=== PATIENT | male | born 1955 | race African-American/Black ===

== ENCOUNTER 2018-05-07 09:08 | Inpatient (IN) | payer OTHER ==
[~2018-05-07] VITALS: Ht 185.4 cm; Wt 96.6 kg
[~2018-05-07 09:08] MED LIST: ASPI-989 PO; ATOR20TA86 PO; GABA-531 PO; HYDR25TA84 PO; LISI-661 PO; METF-960 PO; SITA25 PO
[2018-05-07] MEDS ORDERED: INSLAN SQ (09:15)
[2018-05-07] MEDS ORDERED: DIABETIC PO (09:15)
[2018-05-07] MEDS ORDERED: INSNOV SQ (09:15)
[2018-05-07 09:19] LABS: GLUCOSE,POINT OF CARE 148 MG/DL (70-110)
[2018-05-07 12:31] LABS: BASOPHILS % (AUTO) 0.3 % (0.0-2.0); EOSINOPHILS % (AUTO) 0.8 % (1.0-6.0); HEMATOCRIT 33.2 % (41-53); HEMOGLOBIN 11.1 g/dL (13.5-17.5); LYMPHOCYTES # (AUTO) 0.8 K/uL (1.0-4.8); LYMPHOCYTES % (AUTO) 20.2 % (22.0-44.0); MEAN CORPUSCULAR HEMOGLOBIN 29.8 pg (26.0-34.0); MEAN CORPUSCULAR HGB CONC 33.4 G/dL (31.0-37.0); MEAN CORPUSCULAR VOLUME 89 fL (80-100); MONOCYTES # (AUTO) 0.5 K/uL (0.1-1.0); MONOCYTES % (AUTO) 13.1 % (2.0-9.0); NEUTROPHILS # (AUTO) 2.7 K/uL (1.8-7.7); NEUTROPHILS % (AUTO) 65.6 % (40.0-70.0); PLATELET COUNT (AUTO) 246 K/uL (150-450); RED BLOOD CELL COUNT(AUTO) 3.72 MIL/uL (4.50-5.90); RED CELL DISTRIBUTION WIDTH 13.3 % (11.5-14.5)
[2018-05-07 12:43] LABS: PROTHROMBIN TIME 10.5 SEC (9.4-11.6)
[2018-05-07 12:44] LABS: ANION GAP 9 mmol/L (8-16); CALCIUM, TOTAL 8.6 mg/dL (8.8-10.5); CARBON DIOXIDE 27 mmol/L (22-29); CHLORIDE 103 mmol/L (98-107); CREATININE 1.41 mg/dL (0.60-1.30); GLOMERULAR FILTR. RATE CALC > 60 mL/min (>60); GLUCOSE,RANDOM 197 mg/dL (70-110); POTASSIUM 4.1 mmol/L (3.5-5.1); SODIUM SERUM 139 mmol/L (136-145); UREA NITROGEN, BLOOD 31 mg/dL (7-18)
[2018-05-07 12:56] LABS: ALANINE AMINOTRANSFERASE 14 U/L (12-78); ALBUMIN 3.1 g/dL (3.4-5.0); ALKALINE PHOSPHATASE 65 U/L (46-116); ASPARTATE AMINOTRANSFERASE 20 U/L (15-37); BILIRUBIN,TOTAL 0.4 mg/dL (0.1-1.0); TOTAL PROTEIN, SERUM 7.1 g/dL (6.4-8.2)
[2018-05-07 13:14] LABS: GLUCOSE,POINT OF CARE 195 MG/DL (70-110)
[2018-05-07] MEDS ORDERED: SODIUM CHLORIDE 0.9% IV SCH (13:45)
[2018-05-07] MEDS ORDERED: FAMOTIDINE IV SCH (13:45)
[2018-05-07 14:20] VITALS: BP 152/88
[2018-05-07] MEDS ORDERED: SODIUM CHLORIDE 0.9% 250 ML IV ONE (18:04)
[2018-05-07 19:36] VITALS: BP 142/83
[2018-05-07 19:39] LABS: GLUCOMETER DEV NAME(LOC) 4E.; GLUCOSE,POINT OF CARE 152 MG/DL (70-110)
[2018-05-07] MEDS ORDERED: ALBUTEROL SULFATE 2.5 MG/0.5 ML NEB SOLUTION NEB PRN (21:45)
[2018-05-07] MEDS ORDERED: IPRATROPIUM BROMIDE 0.5 MG/2.5 ML NEB SOLUTION NEB PRN (21:45)
[2018-05-07] MEDS ORDERED: ONDANSETRON HCL 4 MG/2 ML VIAL IVP PRN (21:45)
[2018-05-07] MEDS ORDERED: ZOLPIDEM TARTRATE 5 MG TABLET PO PRN (21:45)
[2018-05-07] MEDS ORDERED: MAGNESIUM HYDROXIDE SUSPENSION 30 ML UDCUP PO PRN (21:45)
[2018-05-07] MEDS ORDERED: HYDROCODONE/ACETAMINOPHEN 5-325 MG TABLET PO PRN (21:45)
[2018-05-07] MEDS ORDERED: BISACODYL 10 MG RECTAL RECTAL SUPPOSITORY PR PRN (21:45)
[2018-05-07] MEDS ORDERED: MORPHINE SULFATE 4 MG/ML SYRINGE IVP PRN (21:45)
[2018-05-07] MEDS: DEXTROSE 5%-0.45% SODIUM CHL 1,000 ML IV SCH (22:24)
[2018-05-07] MEDS: HydrALAZINE HCL 25 MG TABLET PO SCH (22:24)
[2018-05-07 22:26] LABS: HEMATOCRIT 27.4 % (41-53); HEMOGLOBIN 9.4 g/dL (13.5-17.5)
[2018-05-07 23:09] VITALS: BP 126/66
[2018-05-07] MEDS: ACETAMINOPHEN 325 MG TABLET PO PRN (23:17)
[2018-05-08 04:19] VITALS: BP 142/71
[2018-05-08 04:29] LABS: HEMATOCRIT 24.8 % (41-53); HEMOGLOBIN 8.5 g/dL (13.5-17.5)
[2018-05-08] MEDS: HydrALAZINE HCL 25 MG TABLET PO SCH ×3 (05:56→21:30)
[2018-05-08 06:04] LABS: GLUCOMETER DEV NAME(LOC) 4E.; GLUCOSE,POINT OF CARE 188 MG/DL (70-110)
[2018-05-08 08:13] VITALS: BP 147/78
[2018-05-08] MEDS: GABAPENTIN 300 MG CAPSULE PO SCH ×3 (08:27→20:00)
[2018-05-08] MEDS: LISINOPRIL 10 MG TABLET PO SCH ×2 (08:27→20:00)
[2018-05-08] MEDS: DOCUSATE SODIUM 100 MG CAPSULE PO SCH ×2 (08:28→09:00)
[2018-05-08] MEDS ORDERED: PANTOPRAZOLE SODIUM 40 MG/VIAL IVP SCH (09:00)
[2018-05-08 10:06] LABS: HEMOGLOBIN 9.1 g/dL (13.5-17.5)
[2018-05-08] MEDS ORDERED: SODIUM CHLORIDE 0.9% 1,000 ML IV ONE ×2 (10:25→11:00)
[2018-05-08] MEDS ORDERED: MIDAZOLAM HCL 5 MG/ML VIAL ONE (10:28)
[2018-05-08] MEDS ORDERED: FentaNYL CITRATE-PF 100 MCG/2 ML VIAL ONE (10:28)
[2018-05-08] MEDS: DEXTROSE 5%-0.45% SODIUM CHL 1,000 ML IV SCH (13:23)
[2018-05-08 14:16] LABS: % IRON SATURATION 6.4 % (30-44)
[2018-05-08] MEDS: ACETAMINOPHEN 325 MG TABLET PO PRN ×2 (15:24→21:31)
[2018-05-08 16:51] VITALS: BP 154/73
[2018-05-08] MEDS ORDERED: PEG 3350/NA SULF,BICARB,CL/KCL 4000 ML SOLUTION PO ONE (17:00)
[2018-05-08 19:46] VITALS: BP 157/91
[2018-05-08] MEDS: ATORVASTATIN CALCIUM 20 MG TABLET PO SCH (20:00)
[2018-05-08 21:05] LABS: APPEARANCE,URINE CLEAR (CLEAR); BILIRUBIN,URINE NEGATIVE (NEGATIVE); GLUCOSE, URINE (UA) >=1000 mg/dL (NEGATIVE); KETONES,URINE NEGATIVE (NEGATIVE); LEUKOCYTE ESTERASE ,URINE NEGATIVE (NEGATIVE); NITRATE,URINE NEGATIVE (NEGATIVE); OCCULT BLOOD,URINE NEGATIVE (NEGATIVE); PROTEIN,URINE SEE CONFIRM (NEGATIVE)
[2018-05-08 21:28] LABS: SULFOSALICYLIC ACID,URINE 2+ (Negative)
[2018-05-08 21:29] LABS: BACTERIA,URINE None Seen /HPF (None Seen); RBC,URINE None Seen /HPF (0-2); SQUAMOUS EPITHELIAL CELL,UR Rare /LPF (None Seen); WBC,URINE 0-2 /HPF (0-5)
[2018-05-08] MEDS: INSULIN GLARGINE,HUM.REC.ANLOG 100 UNITS/ML SQ SCH (21:46)
[2018-05-08 23:09] LABS: GLUCOMETER DEV NAME(LOC) 4E.; GLUCOSE,POINT OF CARE 200 MG/DL (70-110)
[2018-05-08 23:40] VITALS: BP 144/78
[2018-05-09] VITALS (7 sets, daily range): BP systolic 134–197; BP diastolic 71–91
[2018-05-09 02:30] LABS: INFLUENZA TYPE A NEGATIVE FOR TYPE A (NEGATIVE); INFLUENZA TYPE B NEGATIVE FOR TYPE B (NEGATIVE)
[2018-05-09] MEDS: HydrALAZINE HCL 25 MG TABLET PO SCH ×3 (05:54→21:45)
[2018-05-09] MEDS: ACETAMINOPHEN 325 MG TABLET PO PRN ×2 (05:55→15:27)
[2018-05-09] MEDS: LISINOPRIL 10 MG TABLET PO SCH ×2 (06:15→20:09)
[2018-05-09 06:44] LABS: GLUCOMETER DEV NAME(LOC) 4E.; GLUCOSE,POINT OF CARE 170 MG/DL (70-110)
[2018-05-09] MEDS: GABAPENTIN 300 MG CAPSULE PO SCH ×3 (08:10→20:10)
[2018-05-09 13:39] LABS: GLUCOMETER DEV NAME(LOC) 4E.; GLUCOSE,POINT OF CARE 194 MG/DL (70-110)
[2018-05-09] MEDS: DEXTROSE 5%-0.45% SODIUM CHL 1,000 ML IV SCH ×2 (14:07→14:11)
[2018-05-09] MEDS ORDERED: PEG 3350/NA SULF,BICARB,CL/KCL 4000 ML SOLUTION PO ONE (17:00)
[2018-05-09 17:29] LABS: GLUCOMETER DEV NAME(LOC) 4E.; GLUCOSE,POINT OF CARE 172 MG/DL (70-110)
[2018-05-09] MEDS: INSULIN GLARGINE,HUM.REC.ANLOG 100 UNITS/ML SQ SCH (20:10)
[2018-05-09] MEDS: ATORVASTATIN CALCIUM 20 MG TABLET PO SCH (20:10)
[2018-05-09 20:28] LABS: HEMOGLOBIN 7.9 g/dL (13.5-17.5)
[2018-05-09 21:45] LABS: GLUCOMETER DEV NAME(LOC) 4E.; GLUCOSE,POINT OF CARE 214 MG/DL (70-110)
[2018-05-09 23:04] LABS: BASOPHILS % (AUTO) 0.4 % (0.0-2.0); EOSINOPHILS % (AUTO) 1.2 % (1.0-6.0); HEMATOCRIT 22.8 % (41-53); LYMPHOCYTES # (AUTO) 1.4 K/uL (1.0-4.8); LYMPHOCYTES % (AUTO) 26.1 % (22.0-44.0); MEAN CORPUSCULAR HEMOGLOBIN 29.3 pg (26.0-34.0); MEAN CORPUSCULAR HGB CONC 34.3 G/dL (31.0-37.0); MEAN CORPUSCULAR VOLUME 86 fL (80-100); MONOCYTES # (AUTO) 0.7 K/uL (0.1-1.0); MONOCYTES % (AUTO) 12.1 % (2.0-9.0); NEUTROPHILS # (AUTO) 3.3 K/uL (1.8-7.7); NEUTROPHILS % (AUTO) 60.2 % (40.0-70.0); PLATELET COUNT (AUTO) 221 K/uL (150-450); RED BLOOD CELL COUNT(AUTO) 2.66 MIL/uL (4.50-5.90); RED CELL DISTRIBUTION WIDTH 12.8 % (11.5-14.5)
[2018-05-10 03:56] VITALS: BP 161/84
[2018-05-10] MEDS: DEXTROSE 5%-0.45% SODIUM CHL 1,000 ML IV SCH (04:04)
[2018-05-10] MEDS: ACETAMINOPHEN 325 MG TABLET PO PRN (05:37)
[2018-05-10] MEDS: HydrALAZINE HCL 25 MG TABLET PO SCH ×3 (05:37→20:10)
[2018-05-10 06:04] LABS: BASOPHILS % (AUTO) 0.4 % (0.0-2.0); EOSINOPHILS % (AUTO) 1.2 % (1.0-6.0); HEMATOCRIT 23.2 % (41-53); LYMPHOCYTES # (AUTO) 1.1 K/uL (1.0-4.8); LYMPHOCYTES % (AUTO) 19.5 % (22.0-44.0); MEAN CORPUSCULAR HEMOGLOBIN 29.6 pg (26.0-34.0); MEAN CORPUSCULAR HGB CONC 34.7 G/dL (31.0-37.0); MEAN CORPUSCULAR VOLUME 85 fL (80-100); MONOCYTES # (AUTO) 0.7 K/uL (0.1-1.0); MONOCYTES % (AUTO) 11.6 % (2.0-9.0); NEUTROPHILS # (AUTO) 3.8 K/uL (1.8-7.7); NEUTROPHILS % (AUTO) 67.3 % (40.0-70.0); PLATELET COUNT (AUTO) 245 K/uL (150-450); RED BLOOD CELL COUNT(AUTO) 2.72 MIL/uL (4.50-5.90)
[2018-05-10 06:53] LABS: ALANINE AMINOTRANSFERASE 10 U/L (12-78); ALBUMIN 2.6 g/dL (3.4-5.0); ALKALINE PHOSPHATASE 52 U/L (46-116); ANION GAP 6 mmol/L (8-16); ASPARTATE AMINOTRANSFERASE 18 U/L (15-37); BILIRUBIN,TOTAL 0.3 mg/dL (0.1-1.0); CALCIUM, TOTAL 8.7 mg/dL (8.8-10.5); CARBON DIOXIDE 28 mmol/L (22-29); CHLORIDE 103 mmol/L (98-107); GLOMERULAR FILTR. RATE CALC > 60 mL/min (>60); GLUCOSE,RANDOM 106 mg/dL (70-110); SODIUM SERUM 137 mmol/L (136-145); TOTAL PROTEIN, SERUM 6.2 g/dL (6.4-8.2); UREA NITROGEN, BLOOD 10 mg/dL (7-18)
[2018-05-10 07:35] VITALS: BP 151/84
[2018-05-10] MEDS ORDERED: SODIUM CHLORIDE 0.9% 1,000 ML IV ONE (07:46)
[2018-05-10] MEDS: GABAPENTIN 300 MG CAPSULE PO SCH ×3 (09:45→20:10)
[2018-05-10] MEDS: LISINOPRIL 10 MG TABLET PO SCH ×2 (09:45→20:10)
[2018-05-10 11:23] VITALS: BP 128/70
[2018-05-10 12:20] LABS: GLUCOMETER DEV NAME(LOC) 4E.; GLUCOSE,POINT OF CARE 188 MG/DL (70-110)
[2018-05-10 12:20] LABS: GLUCOMETER DEV NAME(LOC) 4E.; GLUCOSE,POINT OF CARE 100 MG/DL (70-110)
[2018-05-10 16:32] VITALS: BP 163/85
[2018-05-10 17:49] LABS: GLUCOMETER DEV NAME(LOC) 4E.; GLUCOSE,POINT OF CARE 209 MG/DL (70-110)
[2018-05-10] MEDS ORDERED: DEXTROSE 50%-WATER 25 GM/50 ML SYRINGE IVP PRN (18:45)
[2018-05-10 19:50] VITALS: BP 163/81
[2018-05-10] MEDS: ATORVASTATIN CALCIUM 20 MG TABLET PO SCH (20:10)
[2018-05-10] MEDS: GuaiFENesin [SUGAR-FREE] 200 MG/10 ML SOLUTION UDCUP PO PRN (20:10)
[2018-05-10] MEDS: INSULIN GLARGINE,HUM.REC.ANLOG 100 UNITS/ML SQ SCH (20:14)
[2018-05-10] MEDS: INSULIN LISPRO 100 UNITS/ML SQ PRN (20:15)
[2018-05-10 20:59] LABS: GLUCOMETER DEV NAME(LOC) 4E.; GLUCOSE,POINT OF CARE 264 MG/DL (70-110)
[2018-05-10 23:30] VITALS: BP 145/75
[2018-05-11] VITALS (11 sets, daily range): BP systolic 136–176; BP diastolic 62–94
[2018-05-11] MEDS ORDERED: PROPOFOL 1% 20 ML VIAL IVP ONE (05:16)
[2018-05-11] MEDS ORDERED: LIDOCAINE/PF 2% 5 ML VIAL IM ONE (05:16)
[2018-05-11] MEDS ORDERED: MIDAZOLAM HCL 2 MG/2 ML VIAL IVP ONE (05:16)
[2018-05-11 05:52] LABS: BASOPHILS % (AUTO) 0.7 % (0.0-2.0); EOSINOPHILS % (AUTO) 2.2 % (1.0-6.0); HEMATOCRIT 21.6 % (41-53); HEMOGLOBIN 7.4 g/dL (13.5-17.5); LYMPHOCYTES # (AUTO) 1.3 K/uL (1.0-4.8); LYMPHOCYTES % (AUTO) 29.2 % (22.0-44.0); MEAN CORPUSCULAR HEMOGLOBIN 29.4 pg (26.0-34.0); MEAN CORPUSCULAR HGB CONC 34.3 G/dL (31.0-37.0); MEAN CORPUSCULAR VOLUME 86 fL (80-100); MONOCYTES # (AUTO) 0.5 K/uL (0.1-1.0); MONOCYTES % (AUTO) 10.1 % (2.0-9.0); NEUTROPHILS # (AUTO) 2.6 K/uL (1.8-7.7); NEUTROPHILS % (AUTO) 57.8 % (40.0-70.0); PLATELET COUNT (AUTO) 249 K/uL (150-450); RED BLOOD CELL COUNT(AUTO) 2.52 MIL/uL (4.50-5.90)
[2018-05-11] MEDS: INSULIN LISPRO 100 UNITS/ML SQ PRN ×4 (06:05→21:34)
[2018-05-11] MEDS: HydrALAZINE HCL 25 MG TABLET PO SCH ×3 (06:05→21:27)
[2018-05-11 06:09] LABS: ALANINE AMINOTRANSFERASE 12 U/L (12-78); ALBUMIN 2.3 g/dL (3.4-5.0); ALKALINE PHOSPHATASE 55 U/L (46-116); ANION GAP 6 mmol/L (8-16); ASPARTATE AMINOTRANSFERASE 15 U/L (15-37); BILIRUBIN,TOTAL 0.2 mg/dL (0.1-1.0); CALCIUM, TOTAL 8.5 mg/dL (8.8-10.5); CARBON DIOXIDE 27 mmol/L (22-29); CHLORIDE 106 mmol/L (98-107); CREATININE 1.05 mg/dL (0.60-1.30); GLOMERULAR FILTR. RATE CALC > 60 mL/min (>60); GLUCOSE,RANDOM 153 mg/dL (70-110); SODIUM SERUM 139 mmol/L (136-145); TOTAL PROTEIN, SERUM 5.8 g/dL (6.4-8.2); UREA NITROGEN, BLOOD 13 mg/dL (7-18)
[2018-05-11 06:29] LABS: GLUCOMETER DEV NAME(LOC) 4E.; GLUCOSE,POINT OF CARE 178 MG/DL (70-110)
[2018-05-11] MEDS: LISINOPRIL 10 MG TABLET PO SCH ×2 (08:43→21:27)
[2018-05-11] MEDS: GABAPENTIN 300 MG CAPSULE PO SCH ×3 (08:43→21:27)
[2018-05-11] MEDS: GuaiFENesin [SUGAR-FREE] 200 MG/10 ML SOLUTION UDCUP PO PRN (12:50)
[2018-05-11 13:00] LABS: GLUCOMETER DEV NAME(LOC) 4E.; GLUCOSE,POINT OF CARE 282 MG/DL (70-110)
[2018-05-11] MEDS ORDERED: SODIUM CHLORIDE 0.9% 1,000 ML IV ONE (15:31)
[2018-05-11 20:53] LABS: GLUCOMETER DEV NAME(LOC) 6N.2; GLUCOSE,POINT OF CARE 259 MG/DL (70-110)
[2018-05-11] MEDS: ATORVASTATIN CALCIUM 20 MG TABLET PO SCH (21:27)
[2018-05-11] MEDS: INSULIN GLARGINE,HUM.REC.ANLOG 100 UNITS/ML SQ SCH (21:35)
[2018-05-12 00:38] LABS: GLUCOMETER DEV NAME(LOC) 6N.1; GLUCOSE,POINT OF CARE 215 MG/DL (70-110)
[2018-05-12 00:48] VITALS: BP 133/69
[2018-05-12 04:34] VITALS: BP 147/81
[2018-05-12 06:01] LABS: BASOPHILS % (AUTO) 1.1 % (0.0-2.0); EOSINOPHILS % (AUTO) 2.4 % (1.0-6.0); HEMATOCRIT 24.4 % (41-53); HEMOGLOBIN 8.5 g/dL (13.5-17.5); LYMPHOCYTES # (AUTO) 1.7 K/uL (1.0-4.8); LYMPHOCYTES % (AUTO) 23.9 % (22.0-44.0); MEAN CORPUSCULAR HEMOGLOBIN 29.5 pg (26.0-34.0); MEAN CORPUSCULAR HGB CONC 34.8 G/dL (31.0-37.0); MEAN CORPUSCULAR VOLUME 85 fL (80-100); MONOCYTES # (AUTO) 0.6 K/uL (0.1-1.0); MONOCYTES % (AUTO) 8.7 % (2.0-9.0); NEUTROPHILS # (AUTO) 4.6 K/uL (1.8-7.7); NEUTROPHILS % (AUTO) 63.9 % (40.0-70.0); PLATELET COUNT (AUTO) 333 K/uL (150-450); RED BLOOD CELL COUNT(AUTO) 2.89 MIL/uL (4.50-5.90); RED CELL DISTRIBUTION WIDTH 13.1 % (11.5-14.5)
[2018-05-12] MEDS: INSULIN LISPRO 100 UNITS/ML SQ PRN (06:13)
[2018-05-12] MEDS: HydrALAZINE HCL 25 MG TABLET PO SCH ×2 (06:17→13:26)
[2018-05-12 06:31] LABS: ALANINE AMINOTRANSFERASE 14 U/L (12-78); ALBUMIN 2.5 g/dL (3.4-5.0); ALKALINE PHOSPHATASE 59 U/L (46-116); ANION GAP 6 mmol/L (8-16); ASPARTATE AMINOTRANSFERASE 19 U/L (15-37); BILIRUBIN,TOTAL 0.3 mg/dL (0.1-1.0); CALCIUM, TOTAL 8.6 mg/dL (8.8-10.5); CARBON DIOXIDE 27 mmol/L (22-29); CHLORIDE 105 mmol/L (98-107); CREATININE 1.06 mg/dL (0.60-1.30); GLOMERULAR FILTR. RATE CALC > 60 mL/min (>60); GLUCOSE,RANDOM 127 mg/dL (70-110); POTASSIUM 3.9 mmol/L (3.5-5.1); SODIUM SERUM 138 mmol/L (136-145); TOTAL PROTEIN, SERUM 6.2 g/dL (6.4-8.2); UREA NITROGEN, BLOOD 16 mg/dL (7-18)
[2018-05-12 07:00] LABS: GLUCOMETER DEV NAME(LOC) 6N.2; GLUCOSE,POINT OF CARE 144 MG/DL (70-110)
[2018-05-12 08:00] VITALS: BP 141/81
[2018-05-12] MEDS: ATORVASTATIN CALCIUM 20 MG TABLET PO SCH (08:16)
[2018-05-12] MEDS: GABAPENTIN 300 MG CAPSULE PO SCH (08:16)
[2018-05-12] MEDS: LISINOPRIL 10 MG TABLET PO SCH (08:32)
[2018-05-12 11:29] VITALS: BP 138/84
[2018-05-12] MEDS: GuaiFENesin [SUGAR-FREE] 200 MG/10 ML SOLUTION UDCUP PO PRN (11:55)
[2018-05-12 12:03] VITALS: BP 150/96
[2018-05-12 12:35] LABS: GLUCOMETER DEV NAME(LOC) 6N.2; GLUCOSE,POINT OF CARE 131 MG/DL (70-110)
[2018-05-12] MEDS ORDERED: PANT40TA25 PO (14:43)
== END 2018-05-12 15:35 | disposition home or self-care (01) | DRG 253 ==
LOC: EMS 09:09 → 4E 13:47 → 6N 05-11 15:00
PROVIDERS: ADMIT Hospitalist; ATTEND Hospitalist
PROC: 0DB68ZX Excision of Stomach, Via Natural or Artificial Opening Endoscopic, Diagnostic (ICD-10-PCS; principal; 2018-05-08 11:00)
PROC: 0DJD8ZZ Inspection of Lower Intestinal Tract, Via Natural or Artificial Opening Endoscopic (ICD-10-PCS; 2018-05-10)
PROC: 30233N1 Transfusion of Nonautologous Red Blood Cells into Peripheral Vein, Percutaneous Approach (ICD-10-PCS; 2018-05-11)
DX: K92.2 Gastrointestinal hemorrhage, unspecified (principal); R65.11 Systemic inflammatory response syndrome (SIRS) of non-infectious origin with acute organ dysfunction; E44.0 Moderate protein-calorie malnutrition; D50.0 Iron deficiency anemia secondary to blood loss (chronic); I10 Essential (primary) hypertension; E78.5 Hyperlipidemia, unspecified; Z68.28 Body mass index [BMI] 28.0-28.9, adult; Z79.82 Long term (current) use of aspirin; K31.9 Disease of stomach and duodenum, unspecified; K64.8 Other hemorrhoids; R32 Unspecified urinary incontinence; Z28.21 Immunization not carried out because of patient refusal
CPT/HCPCS: 82728; 83540; 83550; 85014; 85018; 86850; 86900; 86901; 86920; 87040; 87045; 87081; 87427; 87804; 88305; 88312; 93005; 96365; 96375; C9113; G0378; J1815; J2250; J2704; J3010; J3490; J7030; J7050; P9016

== ENCOUNTER 2018-06-07 15:49 | Emergency (ER) | payer OTHER ==
[~2018-06-07] VITALS: Ht 185.4 cm; Wt 96.8 kg
[~2018-06-07 15:49] MED LIST changes: +DIABETIC PO; +INSLAN SQ; +INSNOV SQ; -METF-960 PO; +PANT40TA25 PO; -SITA25 PO
[2018-06-07 16:04] VITALS: BP 126/80
[2018-06-07 16:13] LABS: GLUCOSE,POINT OF CARE 136 MG/DL (70-110)
== END 2018-06-07 21:14 | disposition home or self-care (01) ==
LOC: EMS 15:50
DX: S90.221A Contusion of right lesser toe(s) with damage to nail, initial encounter (principal); E11.9 Type 2 diabetes mellitus without complications; I11.9 Hypertensive heart disease without heart failure; Z79.4 Long term (current) use of insulin; Z79.82 Long term (current) use of aspirin; X58.XXXA Exposure to other specified factors, initial encounter; Y93.89 Activity, other specified; Y92.89 Other specified places as the place of occurrence of the external cause; Y99.8 Other external cause status

== ENCOUNTER 2018-07-09 09:11 | Emergency (ER) | payer OTHER ==
[~2018-07-09] VITALS: Ht 185.4 cm; Wt 97.7 kg
[2018-07-09 12:14] LABS: BASOPHILS % (AUTO) 1.2 % (0.0-2.0); EOSINOPHILS % (AUTO) 1.5 % (1.0-6.0); HEMATOCRIT 38.3 % (41-53); HEMOGLOBIN 12.6 g/dL (13.5-17.5); LYMPHOCYTES # (AUTO) 1.4 K/uL (1.0-4.8); MEAN CORPUSCULAR HEMOGLOBIN 27.3 pg (26.0-34.0); MEAN CORPUSCULAR VOLUME 83 fL (80-100); MONOCYTES # (AUTO) 0.3 K/uL (0.1-1.0); MONOCYTES % (AUTO) 7.1 % (2.0-9.0); NEUTROPHILS # (AUTO) 2.6 K/uL (1.8-7.7); NEUTROPHILS % (AUTO) 59.2 % (40.0-70.0); PLATELET COUNT (AUTO) 254 K/uL (150-450); RED BLOOD CELL COUNT(AUTO) 4.62 MIL/uL (4.50-5.90); RED CELL DISTRIBUTION WIDTH 13.1 % (11.5-14.5)
[2018-07-09 12:26] LABS: ANION GAP 10 mmol/L (8-16); CALCIUM, TOTAL 9.5 mg/dL (8.8-10.5); CARBON DIOXIDE 30 mmol/L (22-29); CHLORIDE 106 mmol/L (98-107); CREATININE 1.32 mg/dL (0.60-1.30); GLOMERULAR FILTR. RATE CALC > 60 mL/min (>60); GLUCOSE,RANDOM 179 mg/dL (70-110); POTASSIUM 4.5 mmol/L (3.5-5.1); SODIUM SERUM 146 mmol/L (136-145); UREA NITROGEN, BLOOD 27 mg/dL (7-18)
[2018-07-09 12:32] LABS: ALANINE AMINOTRANSFERASE 16 U/L (12-78); ALBUMIN 3.6 g/dL (3.4-5.0); ALKALINE PHOSPHATASE 84 U/L (46-116); ASPARTATE AMINOTRANSFERASE 15 U/L (15-37); BILIRUBIN,TOTAL 0.4 mg/dL (0.1-1.0); TOTAL PROTEIN, SERUM 7.8 g/dL (6.4-8.2)
[2018-07-09 13:57] VITALS: BP 148/89
== END 2018-07-09 14:00 | disposition home or self-care (01) ==
LOC: EMS 09:12
DX: S91.104A Unspecified open wound of right lesser toe(s) without damage to nail, initial encounter (principal); E11.40 Type 2 diabetes mellitus with diabetic neuropathy, unspecified; L84 Corns and callosities; I11.9 Hypertensive heart disease without heart failure; Z79.4 Long term (current) use of insulin; Z79.82 Long term (current) use of aspirin; Z79.899 Other long term (current) drug therapy; X58.XXXA Exposure to other specified factors, initial encounter; Y93.89 Activity, other specified; Y92.89 Other specified places as the place of occurrence of the external cause; Y99.8 Other external cause status
CPT/HCPCS: 73700

== ENCOUNTER 2019-10-27 19:10 | Emergency (ER) | payer OTHER ==
[~2019-10-27] VITALS: Ht 185.4 cm; Wt 100.0 kg
[~2019-10-27 19:10] MED LIST changes: +GABA-1181 PO; -GABA-531 PO; +PANT-31 PO; -PANT40TA25 PO
[2019-10-27 20:05] LABS: BASOPHILS % (AUTO) 1.7 % (0.0-2.0); HEMATOCRIT 37.2 % (41-53); HEMOGLOBIN 12.3 g/dL (13.5-17.5); LYMPHOCYTES # (AUTO) 1.8 K/uL (1.0-4.8); LYMPHOCYTES % (AUTO) 36.3 % (22.0-44.0); MEAN CORPUSCULAR HEMOGLOBIN 28.7 pg (26.0-34.0); MEAN CORPUSCULAR HGB CONC 33.1 G/dL (31.0-37.0); MEAN CORPUSCULAR VOLUME 87 fL (80-100); MONOCYTES # (AUTO) 0.5 K/uL (0.1-1.0); MONOCYTES % (AUTO) 9.6 % (2.0-9.0); NEUTROPHILS # (AUTO) 2.4 K/uL (1.8-7.7); NEUTROPHILS % (AUTO) 49.4 % (40.0-70.0); PLATELET COUNT (AUTO) 222 K/uL (150-450)
[2019-10-27 20:31] LABS: CALCIUM, TOTAL 9.3 mg/dL (8.8-10.5); CREATININE 2.11 mg/dL (0.60-1.30); POTASSIUM 5.1 mmol/L (3.5-5.1); PROTHROMBIN TIME 10.2 SEC (9.4-11.6)
[2019-10-27 20:54] LABS: ALBUMIN 3.7 g/dL (3.4-5.0); BILIRUBIN,TOTAL 0.4 mg/dL (0.1-1.0); THYROID STIMULATING HORMONE 0.94 uIU/mL (0.36-3.74); TOTAL PROTEIN, SERUM 8.1 g/dL (6.4-8.2)
[2019-10-27 21:43] VITALS: BP 162/94
== END 2019-10-27 21:43 | disposition home or self-care (01) ==
LOC: EMS 19:13
DX: R00.2 Palpitations (principal); N28.9 Disorder of kidney and ureter, unspecified; E11.9 Type 2 diabetes mellitus without complications; I11.9 Hypertensive heart disease without heart failure; Z86.73 Personal history of transient ischemic attack (TIA), and cerebral infarction without residual deficits; Z79.82 Long term (current) use of aspirin; Z79.899 Other long term (current) drug therapy; Z79.4 Long term (current) use of insulin
CPT/HCPCS: 84443; 93005; 36415-L1; 36415-TC; 71045-TC

== ENCOUNTER 2021-02-28 15:42 | Emergency (ER) | payer OTHER ==
[~2021-02-28] VITALS: Ht 185.4 cm; Wt 100.0 kg
[~2021-02-28 15:42] MED LIST changes: -LISI-661 PO; +LISI-893 PO
[2021-02-28 16:48] VITALS: BP 143/81
[2021-02-28 17:05] LABS: GLUCOMETER DEV NAME(LOC) ERT.5; GLUCOSE,POINT OF CARE 149 MG/DL (70-110)
[2021-02-28 17:30] LABS: BASOPHILS % (AUTO) 0.7 % (0.0-2.0); EOSINOPHILS % (AUTO) 2.6 % (1.0-6.0); HEMOGLOBIN 9.5 g/dL (13.5-17.5); LYMPHOCYTES # (AUTO) 1.3 K/uL (1.0-4.8); LYMPHOCYTES % (AUTO) 22.6 % (22.0-44.0); MEAN CORPUSCULAR HGB CONC 32.6 G/dL (31.0-37.0); MEAN CORPUSCULAR VOLUME 92 fL (80-100); MONOCYTES # (AUTO) 0.5 K/uL (0.1-1.0); MONOCYTES % (AUTO) 8.5 % (2.0-9.0); NEUTROPHILS # (AUTO) 3.7 K/uL (1.8-7.7); NEUTROPHILS % (AUTO) 65.6 % (40.0-70.0); PLATELET COUNT (AUTO) 199 K/uL (150-450); RED BLOOD CELL COUNT(AUTO) 3.15 MIL/uL (4.50-5.90); RED CELL DISTRIBUTION WIDTH 13.5 % (11.5-14.5)
[2021-02-28 17:42] LABS: CALCIUM, TOTAL 8.5 mg/dL (8.8-10.5); CREATININE 2.71 mg/dL (0.60-1.30); POTASSIUM 4.7 mmol/L (3.5-5.1)
[2021-02-28 17:47] LABS: BILIRUBIN,TOTAL 0.3 mg/dL (0.1-1.0); TOTAL PROTEIN, SERUM 6.8 g/dL (6.4-8.2)
== END 2021-02-28 18:08 | disposition home or self-care (01) ==
LOC: EMS 15:42
DX: R60.0 Localized edema (principal); D64.9 Anemia, unspecified; N28.9 Disorder of kidney and ureter, unspecified; I13.10 Hypertensive heart and chronic kidney disease without heart failure, with stage 1 through stage 4 chronic kidney disease, or unspecified chronic kidney disease; E11.9 Type 2 diabetes mellitus without complications; I25.2 Old myocardial infarction; Z86.73 Personal history of transient ischemic attack (TIA), and cerebral infarction without residual deficits
CPT/HCPCS: 71045; 80053; 82948; 82962; 85025; 99284; 36415-L1; 36415-TC